=== PATIENT | female | born 1935 | race Caucasian/White ===

== ENCOUNTER 2018-02-01 21:10 | Inpatient (IN) | payer MEDICARE, MEDICAID ==
[~2018-02-01] VITALS: Ht 167.6 cm; Wt 61.8 kg
[2018-02-01] MEDS ORDERED: IV NORMAL SALINE 1000 ML BAG IV ONE (21:45)
[2018-02-01] MEDS ORDERED: CALC500T3 PO (21:49)
[2018-02-01] MEDS ORDERED: DONE5TAB34 PO (21:49)
[2018-02-01] MEDS ORDERED: CLOT15CR63 TP (21:49)
[2018-02-01] MEDS ORDERED: DOCU100C36 PO (21:49)
[2018-02-01] MEDS ORDERED: DIVA250T4 PO (21:49)
[2018-02-01] MEDS ORDERED: CHOL10002 PO (21:49)
[2018-02-01] MEDS ORDERED: ASPI-605 PO (21:49)
[2018-02-01] MEDS ORDERED: MULT1TAB73 PO (21:49)
[2018-02-01] MEDS ORDERED: ATOR10TA PO (21:49)
--- NOTE | 2018-02-01 22:06 | NUR ---
PT BIB [facility]. PT A/OX1, CONFUSED AND DISORIENTED, WHICH IS PT'S BASELINE. PER EMT'S, PT WAS SENT FROM [facility] DUE TO L ORBITAL TISSUE REDNESS/REDNESS. PT PRESENTS W/ EDEMA AND REDNESS AROUDN THE L EYE. PT DENIES PAIN, C/P, SOB, N/V/D, DIZZINESS, HEADACHE.
--- NOTE | 2018-02-01 22:06 | NUR ---
PT TAKEN TO RADIOLOGY FOR CT SCAN.
--- NOTE | 2018-02-01 22:21 | NUR ---
PT BACK IN DEPARTMENT FROM CT SCAN.
--- NOTE | 2018-02-01 22:30 | NUR ---
DR YAZ ANDERSON MD SPEAKING TO DR VAZQUEZ ([facility])
[2018-02-01] MEDS ORDERED: VANCOMYCIN IV 1,000 MG in IV DEXTROSE 5% 250 ML IV ONE (22:45)
--- NOTE | 2018-02-01 22:45 | NUR ---
DR. MUKHERJEE PERFORMED L FEMORAL STICK FOR BLOOD DRAW. NO BLEEDING NOTED AFTER THE PROCEDURE.
[2018-02-01] MEDS ORDERED: VANCOMYCIN IV 200 ML ONE (22:47)
--- NOTE | 2018-02-01 22:53 | NUR ---
PT AGITATED, ATTEMPTING TO PULL OUT IV. PT REORIENTED.
[2018-02-01 22:54] LABS: CARBON DIOXIDE 26 mmol/L (21-32); CHLORIDE 109 mmol/L (98-107); CREATININE 0.9 mg/dL (0.6-1.3); GLUCOSE 103 mg/dL (74-106); POTASSIUM 3.8 mmol/L (3.5-5.1); UREA NITROGEN, BLOOD 17 mg/dL (7-18)
[2018-02-01 22:57] LABS: BASOPHILS # (AUTO) 0.1 K/uL (0.0-8.0); BASOPHILS % (AUTO) 0.9 % (0.0-2.0); EOSINOPHILS # (AUTO) 0.4 K/uL (0.0-0.7); EOSINOPHILS % (AUTO) 5.3 % (0.0-7.0); HEMATOCRIT 41.6 % (31.2-41.9); LYMPHOCYTES # (AUTO) 2.5 K/uL (20.0-40.0); LYMPHOCYTES % (AUTO) 33.6 % (20.5-51.5); MEAN CORPUSCULAR HEMOGLOBIN 31.9 uug (24.7-32.8); MEAN CORPUSCULAR HGB CONC 34 g/dL (32.3-35.6); MEAN CORPUSCULAR VOLUME 94.3 fL (75.5-95.3); MONOCYTES # (AUTO) 0.7 K/uL (2.0-10.0); MONOCYTES % (AUTO) 9.5 % (0.0-11.0); NEUTROPHILS # (AUTO) 3.7 K/uL (1.8-8.9); NEUTROPHILS % (AUTO) 50.7 % (38.5-71.5); PLATELET COUNT (AUTO) 176 K/uL (179-408); RED BLOOD CELL COUNT(AUTO) 4.41 MIL/uL (3.63-4.92); WHITE BLOOD COUNT (AUTO) 7.3 K/uL (3.8-11.8)
[2018-02-01 23:00] LABS: ALANINE AMINOTRANSFERASE 12 U/L (14-59); ALKALINE PHOSPHATASE 85 U/L (50-136); ASPARTATE AMINOTRANSFERASE 10 U/L (15-37); BILIRUBIN,DIRECT 0.1 mg/dL (0.0-0.2); BILIRUBIN,TOTAL 0.5 mg/dL (0.2-1.0); LIPASE 99 U/L (73-393); TOTAL PROTEIN, SERUM 6.7 g/dL (6.4-8.2)
--- NOTE | 2018-02-01 23:04 | NUR ---
ADMITTING REPORT GIVEN TO AMMON RIGGS.
--- NOTE | 2018-02-01 23:14 | NUR ---
APt. admitted to [facility], under care of Dr. FERRO. Belongs List completed
[2018-02-01 23:30] VITALS: BP 143/73
--- NOTE | 2018-02-01 23:30 | NUR ---
IN FROM ER VIA [facility], ADMITTED 82 YEAR OLD FEMALE WITH DX OF LEFT ORBITAL CELLULITIS. PT PLEASANTLY CONFUSED. IV SITE ON RFA, PATENT AND INTACT. ROUTINE ASSESSMENT DONE. PLAN OF CARE INITIATED, SAFETY MEASURES INITIATED, PLACED BED ON LOW, LOCKED POSITION WITH TWO SIDE RAILS UP AND BED ALARM ON, CALL SCHROEDER WITHIN REACH.
--- NOTE | 2018-02-02 00:50 | NUR ---
FRANCA FERRO MD FOR ADMITTING ORDERS. ORDERS RECEIVED TO GIVE VANCOMYCIN PHARMACY DOSE, CONTINUE ALL HOME MEDICATIONS AND HAVE PT ON MECHANICAL SOFT DIET. ORDERS READ BACK AND CARRIED OUT.
[2018-02-02 03:31] VITALS: BP 102/78
--- NOTE | 2018-02-02 06:45 | NUR ---
PT AWAKE ON BED, PLEASANTLY CONFUSED. REORIENTATION GIVEN. NO ACUTE CHANGES THROUGHOUT THE SHIFT. IV SITE, PATENT AND INTACT. KEPT PATIENT SAFE AND COMFORTABLE, CALL SCHROEDER WITHIN REACH.
--- NOTE | 2018-02-02 07:40 | NUR ---
Received pt awake laying in bed, patient states her name is Halima Hernadez. Patient is unable to state where she is at, time or current events, reoriented the patient.
[2018-02-02] MEDS: DIVALPROEX 250 MG TABLET.DR PO SCH ×2 (08:39→16:00)
[2018-02-02] MEDS: CHOLECALCIFEROL 1,000 UNIT TABLET PO SCH (08:39)
[2018-02-02] MEDS: MULTIVITAMINS,THERAPEUTIC TABLET PO SCH (08:39)
[2018-02-02] MEDS: DOCUSATE SODIUM 100 MG CAPSULE PO SCH (08:39)
[2018-02-02] MEDS: CALCIUM CARBONATE 500 MG TABLET PO SCH (08:39)
[2018-02-02] MEDS: DONEPEZIL 5 MG TABLET PO SCH (08:39)
[2018-02-02] MEDS: ASPIRIN EC 81 MG TABLET.DR PO SCH (08:40)
--- NOTE | 2018-02-02 11:24 | NUR ---
Clinical Pharmacy Note: Vancomycin Pharmacy to Dose Subjective: To start vancomycin in this 82 y/o female for indication of cellulitis Objecitve: weight 61kg height 167cm BUN 17 Scr 0.9 wbc 7.3 temp 98.4 1gm vanco given in ER 02/01 @ 3846 Assessment/Plan Will start vancomycin regimen of 1gm q24h for estimated trough of 14.8, 2nd dose tonight at 2300. Will order trough before 4th scheduled dose (not ordered yet). Will follow renal fxn and dose per level if were to become unstable. Will follow
[2018-02-02 11:55] VITALS: BP 129/63
[2018-02-02] MEDS ORDERED: Z GUARD REMEDY PASTE 57 GM TUBE TOP PRN (12:00)
--- NOTE | 2018-02-02 12:00 | NUR ---
(ITA) DAUGHTER BY BEDSIDE,PHONE NUMBER IS
[2018-02-02] MEDS: CLOTRIMAZOLE 1% CREAM 30 GM TUBE TP SCH (14:32)
[2018-02-02 16:26] VITALS: BP 123/61
--- NOTE | 2018-02-02 18:46 | NUR ---
Pt has been compliant with medications and nursing care. Noted patient to be all smiles when entering her room. Pt goes by Annika Hernadez according to daughter. Still in process trying to collect urine, will endorse to shift leader. No s/sx of pain, distress, discomfort or SOB at this time Addendum: 02/02/18 at 1851 by TABITHA BUCHANAN RN Urine sample collected, will send to lab
[2018-02-02 20:00] VITALS: BP 113/74
[2018-02-02] MEDS: ATORVASTATIN 10 MG TABLET PO SCH (20:36)
[2018-02-02] MEDS: VANCOMYCIN IV 1 G in PREMIXED 0 EACH IV SCH (22:43)
[2018-02-03 05:18] VITALS: BP 145/72
--- NOTE | 2018-02-03 06:16 | NUR ---
PATIENT SLEPT MOST OF THE NIGHT, NO SOB NO CHEST PAIN NOTED, PATIENT STILL HAS LEFT EYE, AND L EYE SURROUNDING SKIN STILL RED. CONTINUE ANTIBIOTICS FOR INFECTION, CONT TO MONITOR.
--- NOTE | 2018-02-03 07:51 | NUR ---
Receive patient sleeping, no immediate s/sx of SOB, pain, distress or discomfort.
[2018-02-03] MEDS: DIVALPROEX 250 MG TABLET.DR PO SCH ×2 (08:25→16:43)
[2018-02-03] MEDS: CLOTRIMAZOLE 1% CREAM 30 GM TUBE TP SCH (08:25)
[2018-02-03] MEDS: DOCUSATE SODIUM 100 MG CAPSULE PO SCH (08:25)
[2018-02-03] MEDS: ASPIRIN EC 81 MG TABLET.DR PO SCH (08:25)
[2018-02-03] MEDS: CALCIUM CARBONATE 500 MG TABLET PO SCH (08:25)
[2018-02-03] MEDS: DONEPEZIL 5 MG TABLET PO SCH (08:25)
[2018-02-03] MEDS: MULTIVITAMINS,THERAPEUTIC TABLET PO SCH (08:25)
[2018-02-03] MEDS: CHOLECALCIFEROL 1,000 UNIT TABLET PO SCH (08:25)
--- NOTE | 2018-02-03 10:14 | NUR ---
Clinical Pharmacy Note: Vancomycin Pharmacy to Dose Subjective: To continue vancomycin in this 82 y/o female for indication of cellulitis Objective: weight 61kg height 167cm BUN 17 (02/01) Scr 0.9 (02/01) wbc 7.3 (02/01) temp 98.1 1gm vanco given in ER 02/01 @ 2321 Assessment/Plan Will continue same dose of vancomycin 1gm IVPB q24h for today. 3rd dose tonight at 2300. Will order trough before 4th scheduled dose (not ordered yet). Will follow renal fxn and dose per level if were to become unstable. Will follow
[2018-02-03 11:44] VITALS: BP 133/57
--- NOTE | 2018-02-03 13:00 | NUR ---
New IV line started on the RFA 20g, patent and in take.Pt tolerated procedure well, successful on the second attempt. Previous line noted redness and infiltrated: raised with pillow and placed a warm pack
--- NOTE | 2018-02-03 13:30 | NUR ---
PT,OT and ST ordered for baseline. Discharge planning includes possible discharge to [facility]
[2018-02-03 15:49] VITALS: BP 149/66
--- NOTE | 2018-02-03 16:20 | NUR ---
Pt was seen and evaluated by OT: pt does not qualify, pt is total care, pt will be DC from OT
--- NOTE | 2018-02-03 18:56 | NUR ---
PT HAS BEEN COMPLIANT WITH MEDICATIONS AND NURSING CARE. NO IMMEDIATE S/SX OF SOB,PAIN, DISTRESS OR DISCOMFORT.AT THIS TIME.
[2018-02-03 19:26] VITALS: BP 121/67
[2018-02-03] MEDS: ATORVASTATIN 10 MG TABLET PO SCH (20:16)
[2018-02-03] MEDS: VANCOMYCIN IV 1 G in PREMIXED 0 EACH IV SCH (23:10)
[2018-02-04 03:31] VITALS: BP 157/60
--- NOTE | 2018-02-04 05:02 | NUR ---
PATIENT COMPLAIN OF MILD GENERALIZED BODY COMFORT, NOTIFY DR. KATINA BECKER WITH ORDER.
[2018-02-04] MEDS ORDERED: ACETAMINOPHEN 325 MG TABLET PO PRN (05:15)
[2018-02-04 07:58] LABS: BASOPHILS # (AUTO) 0.1 K/uL (0.0-8.0); EOSINOPHILS # (AUTO) 0.4 K/uL (0.0-0.7); EOSINOPHILS % (AUTO) 6.6 % (0.0-7.0); HEMATOCRIT 41.2 % (31.2-41.9); HEMOGLOBIN 13.9 g/dL (10.9-14.3); LYMPHOCYTES # (AUTO) 1.9 K/uL (20.0-40.0); LYMPHOCYTES % (AUTO) 30.3 % (20.5-51.5); MEAN CORPUSCULAR HEMOGLOBIN 31.8 uug (24.7-32.8); MEAN CORPUSCULAR HGB CONC 34 g/dL (32.3-35.6); MEAN CORPUSCULAR VOLUME 94.2 fL (75.5-95.3); MONOCYTES # (AUTO) 0.6 K/uL (2.0-10.0); MONOCYTES % (AUTO) 8.9 % (0.0-11.0); NEUTROPHILS # (AUTO) 3.4 K/uL (1.8-8.9); NEUTROPHILS % (AUTO) 53.2 % (38.5-71.5); PLATELET COUNT (AUTO) 150 K/uL (179-408); RED BLOOD CELL COUNT(AUTO) 4.37 MIL/uL (3.63-4.92); WHITE BLOOD COUNT (AUTO) 6.3 K/uL (3.8-11.8)
[2018-02-04] MEDS: MULTIVITAMINS,THERAPEUTIC TABLET PO SCH (08:10)
[2018-02-04] MEDS: CLOTRIMAZOLE 1% CREAM 30 GM TUBE TP SCH (08:10)
[2018-02-04] MEDS: CALCIUM CARBONATE 500 MG TABLET PO SCH (08:10)
[2018-02-04] MEDS: DOCUSATE SODIUM 100 MG CAPSULE PO SCH (08:10)
[2018-02-04] MEDS: ASPIRIN EC 81 MG TABLET.DR PO SCH (08:10)
[2018-02-04] MEDS: CHOLECALCIFEROL 1,000 UNIT TABLET PO SCH (08:10)
[2018-02-04] MEDS: DONEPEZIL 5 MG TABLET PO SCH (08:10)
[2018-02-04] MEDS: DIVALPROEX 250 MG TABLET.DR PO SCH (08:10)
[2018-02-04 08:42] LABS: CARBON DIOXIDE 28 mmol/L (21-32); CHLORIDE 107 mmol/L (98-107); GLUCOSE 88 mg/dL (74-106); POTASSIUM 4.4 mmol/L (3.5-5.1); UREA NITROGEN, BLOOD 13 mg/dL (7-18)
[2018-02-04] MEDS ORDERED: VANC1PLA11 IV (11:04)
[2018-02-04] MEDS ORDERED: RXVAN XX (11:04)
[2018-02-04] MEDS ORDERED: MENT71OI TOP (11:04)
[2018-02-04 11:38] VITALS: BP 108/52
--- NOTE | 2018-02-04 12:26 | NUR ---
Clinical Pharmacy Note: Vancomycin Pharmacy to Dose Subjective: To continue vancomycin in this 82 y/o female for indication of cellulitis Objective: weight 61kg height 167cm BUN 13 Scr 1.0 wbc 6.3 temp 98.1 Assessment/Plan Will continue same dose of vancomycin 1gm IVPB q24h for today. 3rd dose given last night at 2300. Will order trough before 4th scheduled dose (ordered for today at 2230). Will follow .
--- NOTE | 2018-02-04 13:50 | NUR ---
Patient discharged at this time in stable condition, no signs of distress. vital signs stable. report given to facility. belongings checklist completed. IV-site left in place due to abx continued at facility. Left [facility] safely with ambulance.
== END 2018-02-04 13:50 | DRG 603 ==
LOC: ER 21:10 → MED 23:13
PROVIDERS: ADMIT Internal Medicine; ATTEND Internal Medicine
DX: L03.213 Periorbital cellulitis (principal); L03.211 Cellulitis of face; Z79.899 Other long term (current) drug therapy; Z79.82 Long term (current) use of aspirin; F03.90 Unspecified dementia, unspecified severity, without behavioral disturbance, psychotic disturbance, mood disturbance, and anxiety; M81.0 Age-related osteoporosis without current pathological fracture; I10 Essential (primary) hypertension; R94.31 Abnormal electrocardiogram [ECG] [EKG]
CPT/HCPCS: 36415; 70030-TC; 70486; 71045; 83690; 85025; 85730; 87086; 92610; 93005; A4663; G0378; J3370; J3490; J7030